=== PATIENT | female | born 1970 | race Caucasian/White ===

== ENCOUNTER 2018-10-19 16:41 | Emergency (ER) | payer BC ==
[~2018-10-19] VITALS: Ht 170.1 cm; Wt 133.8 kg
[~2018-10-19 16:41] MED LIST: ATARAX25 MG PO; MEDROL DOSEPAK4 MG PO; NKHM
[2018-10-19 16:43] VITALS: BP 134/44
[2018-10-19] MEDS ORDERED: PREDNISONE20 M1 PO (18:58)
[2018-10-19] MEDS ORDERED: ROBAXIN500 M1 PO (18:58)
== END 2018-10-19 18:59 | disposition home or self-care (01) ==
LOC: ED 16:41
DX: S33.5XXA Sprain of ligaments of lumbar spine, initial encounter (principal); M54.41 Lumbago with sciatica, right side; X58.XXXA Exposure to other specified factors, initial encounter; Y93.89 Activity, other specified; Y92.89 Other specified places as the place of occurrence of the external cause; Y99.8 Other external cause status

== ENCOUNTER 2019-02-25 20:29 | Emergency (ER) | payer BC ==
[~2019-02-25] VITALS: Ht 170.1 cm; Wt 131.5 kg
[2019-02-25 20:29] VITALS: BP 136/74
[~2019-02-25 20:29] MED LIST changes: +PREDNISONE20 M1 PO; +ROBAXIN500 M1 PO
[2019-02-25] MEDS ORDERED: HYDROCHLOROTH12.5 M3 PO (20:35)
[2019-02-25] MEDS ORDERED: LEVOTHYROXINE75 MCG PO (20:35)
[2019-02-25] MEDS ORDERED: PANTOPRAZOLE SO40 MG PO (20:35)
[2019-02-25] MEDS ORDERED: METOPROLOL TART50 M1 PO (20:35)
[2019-02-25] MEDS ORDERED: SERTRALINE HYDR50 MG PO (20:36)
[2019-02-25] MEDS ORDERED: ANAPROX DS550 MG PO (21:33)
== END 2019-02-25 23:32 | disposition home or self-care (01) ==
LOC: ED 20:29
DX: M25.562 Pain in left knee (principal); Z98.890 Other specified postprocedural states; Z90.49 Acquired absence of other specified parts of digestive tract; Z79.899 Other long term (current) drug therapy; V19.88XA Pedal cyclist (driver) (passenger) injured in other specified transport accidents, initial encounter; Y93.55 Activity, bike riding; Y92.413 State road as the place of occurrence of the external cause; Y99.9 Unspecified external cause status

== ENCOUNTER 2021-05-25 17:09 | Emergency (ER) | payer OTHER ==
[~2021-05-25 17:09] MED LIST changes: +ANAPROX DS550 MG PO; +HYDROCHLOROTH12.5 M3 PO; +LEVOTHYROXINE75 MCG PO; +METOPROLOL TART50 M1 PO; +PANTOPRAZOLE SO40 MG PO; +SERTRALINE HYDR50 MG PO
[2021-05-26] MEDS ORDERED: LASIX40 MG PO (15:11)
[2021-05-26] MEDS ORDERED: POTASSIUM CHLO10 ME4 PO (15:12)
== END 2021-05-25 23:11 | disposition left against medical advice (07) ==
LOC: ED 17:09
DX: M79.89 Other specified soft tissue disorders (principal); R06.02 Shortness of breath; Z53.21 Procedure and treatment not carried out due to patient leaving prior to being seen by health care provider

== ENCOUNTER 2021-05-26 09:32 | Emergency (ER) | payer OTHER ==
[~2021-05-26] VITALS: Wt 146.1 kg
[2021-05-26 10:10] LABS: BASO # 0.1 10*3/uL (0.0-0.1); BASO % 0.9 % (0.0-1.0); EOS # 0.1 10*3/uL (0.0-0.4); EOS % 1.9 % (1.0-4.0); HEMATOCRIT 40.2 % (37.0-47.0); LYMPH # 1.4 10*3/uL (1.3-4.4); LYMPH % 19.2 % (27.0-41.0); MEAN CELL VOLUME 93.1 fl (81.0-99.0); MEAN CORPUSCULAR HGB 29.2 pg (27.0-31.0); MEAN CORPUSCULAR HGB CONC 31.3 g/dl (33.0-37.0); MEAN PLATELET VOLUME 10.2 fl (9.6-12.3); MONO # 0.5 10*3/uL (0.1-1.0); MONO % 7.5 % (3.0-9.0); NEUT # 4.9 10*3/uL (2.3-7.9); NEUT % 69.9 % (47.0-73.0); PLATELET COUNT AUTOMATED 311 10*3/uL (130-400); RED BLOOD COUNT 4.32 10*6/uL (4.10-5.10)
[2021-05-26 10:29] LABS: ALBUMIN 2.7 gm/dl (3.1-4.5); ALKALINE PHOSPHATASE 105 U/L (45-117); BUN 8 mg/dl (7-24); CHLORIDE 104 mmol/L (98-107); CREATININE 0.76 mg/dL (0.55-1.02); POTASSIUM 3.2 mmol/L (3.5-5.1); SGOT/AST 19 IU/L (3-35); SGPT/ALT 13 U/L (12-78); SODIUM 139 mmol/L (136-145); TOTAL PROTEIN 6.9 gm/dL (6.4-8.2)
[2021-05-26] MEDS ORDERED: LASIX40 MG PO (15:11)
[2021-05-26] MEDS ORDERED: POTASSIUM CHLO10 ME4 PO (15:12)
[2021-05-26 15:26] VITALS: BP 132/57
== END 2021-05-26 15:34 | disposition home or self-care (01) ==
LOC: ED 09:32
PROVIDERS: Student in an Organized Health Care Education/Training Program
DX: U07.1 COVID-19 (principal); J12.82 Pneumonia due to coronavirus disease 2019; R60.0 Localized edema; Z79.899 Other long term (current) drug therapy

== ENCOUNTER → 2021-07-05 | Outpatient (CLI) | payer OTHER ==
[~2021-07-05] MED LIST changes: +LASIX40 MG PO; +POTASSIUM CHLO10 ME4 PO
[2021-07-05 09:51] LABS: BUN 23 mg/dl (7-24); CHLORIDE 100 mmol/L (98-107); CHOLESTEROL 189 mg/dL (<200); CREATININE 0.98 mg/dL (0.55-1.02); LDL CHOLESTEROL 80 mg/dL (9-159); POTASSIUM 3.1 mmol/L (3.5-5.1); SODIUM 139 mmol/L (136-145); TRIGLYCERIDES 235 mg/dl (<150)
== END | disposition home or self-care (01) ==
LOC: LAB 09:18
PROVIDERS: ATTEND Internal Medicine Cardiovascular Disease
DX: I10 Essential (primary) hypertension (principal); E78.5 Hyperlipidemia, unspecified

== ENCOUNTER → 2021-09-20 | Outpatient (CLI) | payer OTHER ==
[2021-09-20 08:25] LABS: BUN 15 mg/dl (7-24); CHLORIDE 97 mmol/L (98-107); CHOLESTEROL 130 mg/dL (<200); CREATININE 0.79 mg/dL (0.55-1.02); POTASSIUM 2.8 mmol/L (3.5-5.1); SODIUM 135 mmol/L (136-145); TRIGLYCERIDES 150 mg/dl (<150)
[2021-09-20 08:28] LABS: LDL CHOLESTEROL 52 mg/dL (9-159)
== END | disposition home or self-care (01) ==
LOC: LAB 07:41
PROVIDERS: ATTEND Internal Medicine Cardiovascular Disease
DX: I10 Essential (primary) hypertension (principal); E78.5 Hyperlipidemia, unspecified

== ENCOUNTER → 2021-10-27 | Outpatient (CLI) | payer OTHER ==
[2021-10-27 09:27] LABS: BUN 13 mg/dl (7-24); CHLORIDE 96 mmol/L (98-107); CREATININE 0.94 mg/dL (0.55-1.02); POTASSIUM 2.6 mmol/L (3.5-5.1); SODIUM 136 mmol/L (136-145); TRIGLYCERIDES 173 mg/dl (<150)
[2021-10-27 09:35] LABS: CHOLESTEROL 134 mg/dL (<200); LDL CHOLESTEROL 51 mg/dL (9-159)
== END | disposition home or self-care (01) ==
LOC: LAB 08:37
PROVIDERS: ATTEND Family Medicine
DX: E78.5 Hyperlipidemia, unspecified (principal)

== ENCOUNTER → 2021-11-14 | Outpatient (CLI) | payer OTHER ==
[2021-11-14 10:26] LABS: CHLORIDE 95 mmol/L (98-107); SODIUM 134 mmol/L (136-145)
[2021-11-14 10:36] LABS: BUN 16 mg/dl (7-24); CREATININE 1.13 mg/dL (0.55-1.02)
== END | disposition home or self-care (01) ==
LOC: LAB 09:29
PROVIDERS: ATTEND Nurse Practitioner Adult Health
DX: E87.6 Hypokalemia (principal); I50.33 Acute on chronic diastolic (congestive) heart failure

== ENCOUNTER → 2021-11-15 | Outpatient (CLI) | payer OTHER ==
[2021-11-15 14:42] LABS: BUN 18 mg/dl (7-24); CHLORIDE 98 mmol/L (98-107); CREATININE 1.12 mg/dL (0.55-1.02); POTASSIUM 3.2 mmol/L (3.5-5.1); SODIUM 136 mmol/L (136-145)
== END | disposition home or self-care (01) ==
LOC: LAB 14:07
PROVIDERS: Nurse Practitioner Adult Health; ATTEND Family Medicine
DX: I50.33 Acute on chronic diastolic (congestive) heart failure (principal); E87.6 Hypokalemia

== ENCOUNTER → 2021-11-20 | Outpatient (CLI) | payer OTHER ==
[2021-11-20 10:10] LABS: BUN 14 mg/dl (7-24); CHLORIDE 99 mmol/L (98-107); CREATININE 1.04 mg/dL (0.55-1.02); POTASSIUM 3.1 mmol/L (3.5-5.1); SODIUM 137 mmol/L (136-145)
== END ==
LOC: LAB 09:40
PROVIDERS: Clinical Nurse Specialist Adult Health; ATTEND Family Medicine
DX: E87.6 Hypokalemia (principal)

== ENCOUNTER → 2021-11-24 | Outpatient (CLI) | payer OTHER ==
[2021-11-24 09:54] LABS: BUN 16 mg/dl (7-24); CHLORIDE 102 mmol/L (98-107); CREATININE 1.02 mg/dL (0.55-1.02); POTASSIUM 3.7 mmol/L (3.5-5.1); SODIUM 138 mmol/L (136-145)
== END | disposition home or self-care (01) ==
LOC: LAB 08:24
PROVIDERS: ATTEND Clinical Nurse Specialist Adult Health
DX: I50.33 Acute on chronic diastolic (congestive) heart failure (principal); E87.6 Hypokalemia; R06.02 Shortness of breath

== ENCOUNTER → 2022-07-04 | Outpatient (CLI) | payer BC ==
[2022-07-04 09:21] LABS: ALKALINE PHOSPHATASE 212 U/L (46-116); BUN 16 mg/dl (9-23); CHLORIDE 102 mmol/L (98-107); CHOLESTEROL 148 mg/dL (<200); FREE T4 0.89 ng/dl (0.89-1.76); LDL CHOLESTEROL 69 mg/dL (9-159); POTASSIUM 3.9 mmol/L (3.4-5.1); SGPT/ALT 12 U/L (10-49); THYROID STIM HORMONE (HS) 4.405 uIU/ml (0.550-4.780); TOTAL PROTEIN 7.4 gm/dL (6.0-8.0); TRIGLYCERIDES 173 mg/dl (<150)
== END | disposition home or self-care (01) ==
LOC: LAB 08:26
PROVIDERS: ATTEND Internal Medicine
DX: R25.2 Cramp and spasm (principal); E55.9 Vitamin D deficiency, unspecified; E03.9 Hypothyroidism, unspecified; E78.5 Hyperlipidemia, unspecified; R73.9 Hyperglycemia, unspecified

== ENCOUNTER → 2022-10-30 | Outpatient (CLI) | payer BC ==
[2022-10-30 08:59] LABS: CHOLESTEROL 152 mg/dL (<200); LDL CHOLESTEROL 70 mg/dL (9-159); TRIGLYCERIDES 166 mg/dl (<150)
== END | disposition home or self-care (01) ==
LOC: LAB 08:14
PROVIDERS: ATTEND Internal Medicine Cardiovascular Disease
DX: E78.5 Hyperlipidemia, unspecified (principal)